=== PATIENT | female | born 1990 | race Caucasian/White ===

== ENCOUNTER → 2017-02-01 | Outpatient (CLI) | payer OTHER ==
--- NOTE | 2017-02-01 15:20 | XR ---
Left shoulder HISTORY: Pain 3 views of the left shoulder Bone mineralization, joint spaces and alignment are maintained. Left lung apex as visualized is kiran l. IMPRESSION: Normal left shoulder.
== END | disposition home or self-care (01) ==
LOC: RADXRMAIN 14:56
PROVIDERS: ATTEND Physician Assistant
DX: M25.512 Pain in left shoulder (principal)

== ENCOUNTER → 2017-04-06 | Outpatient (CLI) | payer OTHER ==
--- NOTE | 2017-04-06 22:23 | CONS ---
CONSULTATION DATE OF SERVICE: 04/06/2017. REASON FOR CONSULTATION: Sleep apnea. PRIMARY CARE PHYSICIAN: Jessica Lujan DO. HISTORY: A very pleasant 26-year-old female patient, works at a [employer] in [place]. The patient is struggling with increased sleepiness and fatigue. She at some times has a hard time keeping herself awake at work. She snores and she quits breathing at night, and this has been told to her by her boyfriend. She has excessive fatigue and sleepiness during the day. She goes to bed between 11 p.m. and 1 a.m. and she wakes up between 5 a.m. and 1 p.m. She averages between 5 to 9 hours of sleep. She has gained around 40 pounds since her high school years. No restlessness in the lower extremities. She wakes up with a dry mouth. No anxiety or palpitations or panic attacks. No other psychiatric history or disorders. No history of any other major medical problems or comorbidities. PAST MEDICAL HISTORY: Acid reflux, arthritis, and obesity. PAST SURGICAL HISTORY: Negative. DRUG ALLERGIES: Not known. OUTPATIENT MEDICATIONS: Naprosyn and omeprazole. SOCIAL HISTORY: Patient smokes half pack of cigarettes a day. No history of alcohol. No history of IV drugs. She drinks Mountain Dew as a caffeinated beverage. FAMILY HISTORY: Negative for sleep apnea in both parents. REVIEW OF SYSTEMS: A 12-point review of system was done, positive findings are mentioned above in the history of present illness. PHYSICAL EXAMINATION: BP is 151/83, pulse 80, respirations 16, temperature 97.3, saturation 99% on room air. Weight is 243, height is 5 feet 5 inches with BMI 39.8. Neck size is 16 inches. GENERAL: Appears calm and comfortable. HEAD: Atraumatic, normocephalic. NECK: Supple. There is no JVD, goiter or neck masses. Mallampati class 4. LUNGS: Clear to auscultation. HEART: Sounds are regular. Normal S1, S2. ABDOMEN: Soft, nontender. No organomegaly. EXTREMITIES: No edema. No cyanosis or clubbing. NEUROLOGIC: The patient is alert and oriented x3. There are no focal neurological deficits. PSYCHIATRIC: No anxiety or depression. SKIN: Negative for ulceration or wounds. IMPRESSION: 1. Obstructive sleep apnea, clinically suspected, under investigation. 2. Chronic hypersomnia and fatigue, [place] score of 14. 3. Obesity with a body mass index of 39.8. 4. Smoker. 5. Acid reflux. PLAN: 1. Encourage weight loss. 2. Proceed with a screening polysomnogram. 3. We will continue to follow and make further recommendations based on the results of the sleep study. MMODL / IJN: [id number] /
== END | disposition home or self-care (01) ==
LOC: SLEEP 16:03
PROVIDERS: ATTEND Internal Medicine Critical Care Medicine
DX: G47.33 Obstructive sleep apnea (adult) (pediatric) (principal); G47.10 Hypersomnia, unspecified; R53.83 Other fatigue; E66.9 Obesity, unspecified; F17.200 Nicotine dependence, unspecified, uncomplicated; K21.9 Gastro-esophageal reflux disease without esophagitis; Z68.39 Body mass index [BMI] 39.0-39.9, adult; Z79.1 Long term (current) use of non-steroidal anti-inflammatories (NSAID); Z79.899 Other long term (current) drug therapy
CPT/HCPCS: 99211

== ENCOUNTER → 2017-04-28 | Outpatient (CLI) | payer OTHER ==
--- NOTE | 2017-04-28 23:06 | MR ---
EXAMINATION TYPE: MR shoulder LT wo con DATE OF EXAM: 04/28/2017 COMPARISON: NONE HISTORY: Shoulder pain TECHNIQUE: Multiplanar, multisequence imaging of the left shoulder is performed without contrast. FINDINGS: The glenoid francis appear intact. Subscapularis tendon is intact. The supraspinatus tendon is intact. I see no subacromial impingement. AC joint appears normal. The biceps tendon appears intact. I see no bony destructive process. There is no evidence of a fracture. IMPRESSION: Negative MR scan of the left shoulder. No evidence of rotator cuff tear.
== END | disposition home or self-care (01) ==
LOC: RADMRIMAIN 21:37
PROVIDERS: ATTEND Family Medicine
DX: M25.511 Pain in right shoulder (principal)

== ENCOUNTER 2019-01-30 13:33 | Emergency (ER) | payer OTHER ==
[2019-01-30] MEDS ORDERED: FAMOTIDINE 20 MG/2 ML VIAL IV STA (14:07)
[2019-01-30] MEDS ORDERED: ONDANSETRON 4 MG/2 ML VIAL IVP STA (14:07)
[2019-01-30] MEDS ORDERED: SODIUM CHLORIDE 0.9% 2,000 ML IV STA (14:07)
[2019-01-30] MEDS ORDERED: DICYCLOMINE 10 MG/ML 2 ML AMP IM STA (14:07)
--- NOTE | 2019-01-30 14:09 | ED ---
General Adult HPI - General Chief complaint: Abdominal Pain Stated complaint: NVD Time Seen by Provider: 01/30/19 13:44 Source: patient, RN notes reviewed Mode of arrival: ambulatory Limitations: no limitations - History of Present Illness Initial comments: Patient is a pleasant 28-year-old female presenting to the emergency department with nausea vomiting diarrhea. Symptoms started 3 or 4 days ago. Patient did have headaches however those have mostly resolved. Patient has had fevers and nausea vomiting diarrhea over the past few days. Patient has vomited a proximally 6 times. Patient is having diarrhea multiple times per day, sometimes up to every hour. Patient has occasional abdominal cramping that can be severe at times. No dysuria or hematuria. Abdominal discomfort is minimal at this point. Patient had fairly significant cramping the last 2 days. - Related Data Home Medications Medication Instructions Recorded Confirmed Omeprazole Magnesium [PriLOSEC OTC] 20 mg PO DAILY PRN 01/30/19 01/30/19 Previous Rx's Medication Instructions Recorded Dicyclomine [Bentyl] 20 mg PO QID #20 tablet 01/30/19 Allergies Allergy/AdvReac Type Severity Reaction Status Date / Time No Known Allergies Allergy Verified 01/30/19 13:52 Review of Systems ROS Statement: Those systems with pertinent positive or pertinent negative responses have been documented in the HPI. ROS Other: All systems not noted in ROS Statement are negative. Constitutional: Reports: as per HPI Eyes: Denies: eye pain ENT: Denies: ear pain Respiratory: Denies: cough Cardiovascular: Denies: chest pain Endocrine: Denies: fatigue Gastrointestinal: Reports: as per HPI, abdominal pain, nausea, vomiting, diarrhea Genitourinary: Denies: dysuria Musculoskeletal: Denies: back pain Skin: Denies: rash Neurological: Denies: weakness Past Medical History Past Medical History: Hypertension History of Any Multi-Drug Resistant Organisms: None Reported Past Surgical History: No Surgical Hx Reported Past Psychological History: No Psychological Hx Reported Smoking Status: Current every day smoker Past Alcohol Use History: None Reported Past Drug Use History: Marijuana General Exam Limitations: no limitations General appearance: alert, in no apparent distress Head exam: Present: normocephalic Eye exam: Present: normal appearance, PERRL ENT exam: Present: normal oropharynx Neck exam: Present: normal inspection. Absent: meningismus Respiratory exam: Present: normal lung sounds bilaterally Cardiovascular Exam: Present: regular rate, normal rhythm Expanded Peripheral pulses: 2+: Posterior Tibialis (R), Posterior Tibialis (L), Dorsalis Pedis (R), Dorsalis Pedis (L) GI/Abdominal exam: Present: soft. Absent: distended, tenderness, guarding, rebound, rigid, pulsatile mass Extremities exam: Present: normal inspection. Absent: pedal edema, calf tenderness Neurological exam: Present: alert. Absent: motor sensory deficit Psychiatric exam: Present: normal affect, normal mood Skin exam: Present: normal color Course Vital Signs 01/30/19 13:35 Temperature 99.0 F Pulse Rate 100 Respiratory 19 Rate Blood Pressure 141/92 O2 Sat by Pulse 99 Oximetry Medical Decision Making - Medical Decision Making Patient reevaluated and resting comfortably in bed. Patient states she does feel much better. Patient updated on results. - Lab Data Result diagrams: 01/30/19 14:00 01/30/19 14:00 Lab Results 01/30/19 01/30/19 01/30/19 Range/Units 14:00 14:00 14:00 WBC 11.2 H (3.8-10.6) k/uL RBC 5.36 (3.80-5.40) m/uL Hgb 14.1 (11.4-16.0) gm/dL Hct 42.9 (34.0-46.0) % MCV 80.1 (80.0-100.0) fL MCH 26.3 (25.0-35.0) pg MCHC 32.8 (31.0-37.0) g/dL RDW 14.0 (11.5-15.5) % Plt Count 357 (150-450) k/uL Neutrophils % 82 % Lymphocytes % 11 % Monocytes % 4 % Eosinophils % 1 % Basophils % 1 % Neutrophils # 9.2 H (1.3-7.7) k/uL Lymphocytes # 1.2 (1.0-4.8) k/uL Monocytes # 0.5 (0-1.0) k/uL Eosinophils # 0.1 (0-0.7) k/uL Basophils # 0.1 (0-0.2) k/uL Sodium 138 (137-145) mmol/L Potassium 3.7 (3.5-5.1) mmol/L Chloride 104 (98-107) mmol/L Carbon Dioxide 21 L (22-30) mmol/L Anion Gap 13 mmol/L BUN 5 L (7-17) mg/dL Creatinine 0.71 (0.52-1.04) mg/dL Est GFR (CKD-EPI)AfAm >90 (>60 ml/min/1.73 sqM) Est GFR (CKD-EPI)NonAf >90 (>60 ml/min/1.73 sqM) Glucose 122 H (74-99) mg/dL Calcium 9.7 (8.4-10.2) mg/dL Total Bilirubin 0.3 (0.2-1.3) mg/dL AST 19 (14-36) U/L ALT 16 (9-52) U/L Alkaline Phosphatase 82 (38-126) U/L Total Protein 7.9 (6.3-8.2) g/dL Albumin 4.4 (3.5-5.0) g/dL Amylase 46 (30-110) U/L Lipase 27 (23-300) U/L HCG, Quant <2.4 mIU/mL Urine Color Light [place] Urine Appearance Turbid H (Clear) Urine pH 6.0 (5.0-8.0) Ur Specific [place] 1.026 (1.001-1.035) Urine Protein 2+ H (Negative) Urine Glucose (UA) Negative (Negative) Urine Ketones Negative (Negative) Urine Blood Trace H (Negative) Urine Nitrite Negative (Negative) Urine Bilirubin Negative (Negative) Urine Urobilinogen <2.0 (<2.0) mg/dL Ur Leukocyte Esterase Large H (Negative) Urine RBC 3 (0-5) /hpf Urine WBC 5 (0-5) /hpf Ur Squamous Epith Cells 40 H (0-4) /hpf Urine Mucus Rare H (None) /hpf - Radiology Data Radiology results: image reviewed (Abdominal x-ray shows nonobstructive pattern) Disposition Clinical Impression: Diarrhea Disposition: HOME SELF-CARE Condition: Stable Instructions (If sedation given, give patient instructions): Acute Diarrhea (ED), Acute Nausea and Vomiting (ED) Additional Instructions: your prescription has been sent to [facility] in [place]. Please follow-up with primary care physician in the next day or 2 for recheck. Return for increased pain, fevers, not tolerating oral intake, worsening symptoms or other concerns. Prescriptions: Dicyclomine [Bentyl] 20 mg PO QID #20 tablet Is patient prescribed a controlled substance at d/c from ED?: No Referrals: Jaylen Medina MD [STAFF PHYSICIAN] - 1-2 days Time of Disposition: 15:34
--- NOTE | 2019-01-30 14:28 | XR ---
EXAMINATION TYPE: XR abdomen 1V DATE OF EXAM: 01/30/2019 COMPARISON: NONE HISTORY: Abdominal discomfort, diarrhea, vomiting TECHNIQUE: Single upright view of the abdomen was performed FINDINGS: There is a mild dextroscoliosis in the long segment of the thoracolumbar spine. No dilated large or small bowel. Diffuse paucity of bowel gas. Lung bases are well aerated. Slight elevation of the right hemidiaphragm may be physiologic. Osseous structures appear intact. IMPRESSION: Nonobstructive bowel gas pattern. Diffuse paucity of bowel gas throughout the abdomen.
[2019-01-30 14:31] LABS: Basophils # (A) 0.1 k/uL (0-0.2); Basophils % (A) 1 %; Eosinophils # (A) 0.1 k/uL (0-0.7); Eosinophils % (A) 1 %; HCT 42.9 % (34.0-46.0); HGB 14.1 gm/dL (11.4-16.0); Lymphocytes # (A) 1.2 k/uL (1.0-4.8); Lymphocytes % (A) 11 %; MCH 26.3 pg (25.0-35.0); MCHC 32.8 g/dL (31.0-37.0); MCV 80.1 fL (80.0-100.0); Mean Platelet Volume 6.3; Monocytes # (A) 0.5 k/uL (0-1.0); Monocytes % (A) 4 %; Neutrophils # (A) 9.2 k/uL (1.3-7.7); Neutrophils % (A) 82 %; Platelet Count 357 k/uL (150-450); RBC 5.36 m/uL (3.80-5.40); WBC 11.2 k/uL (3.8-10.6)
[2019-01-30 14:38] LABS: Appearance,Urine Turbid (Clear); Bilirubin,Urine Negative (Negative); Blood,Urine Trace (Negative); Color,Urine Light Orange; Glucose,Urine (UA) Negative (Negative); Ketones,Urine Negative (Negative); Leukocyte Esterase,Urine Large (Negative); Mucus,Urine Rare /hpf; Nitrite,Urine Negative (Negative); Protein,Urine 2+ (Negative); RBC,Urine 3 /hpf (0-5); Specific Gravity,Urine 1.026 (1.001-1.035); Squamous Epithelial Cell,Urine 40 /hpf (0-4); Urobilinogen,Urine <2.0 mg/dL (<2.0); WBC,Urine 5 /hpf (0-5)
[2019-01-30 14:39] LABS: ALT 16 U/L (9-52); AST 19 U/L (14-36); African American GFR (CKD) >90 (>60 ml/min/1.73 sqM); Albumin 4.4 g/dL (3.5-5.0); Alkaline Phosphatase 82 U/L (38-126); Amylase 46 U/L (30-110); Anion Gap 13 mmol/L; Blood Urea Nitrogen 5 mg/dL (7-17); Calcium 9.7 mg/dL (8.4-10.2); Carbon Dioxide 21 mmol/L (22-30); Chloride 104 mmol/L (98-107); Glucose 122 mg/dL (74-99); Potassium 3.7 mmol/L (3.5-5.1); Sodium 138 mmol/L (137-145); Total Bilirubin 0.3 mg/dL (0.2-1.3); Total Protein 7.9 g/dL (6.3-8.2)
[2019-01-30 14:56] LABS: HCG,Quantitative Serum <2.4 mIU/mL
[2019-01-30 15:50] VITALS: BP 130/78; PULSE 74; RESP 18; TEMP 98
== END 2019-01-30 15:50 | disposition home or self-care (01) ==
LOC: EC 13:33
DX: R19.7 Diarrhea, unspecified (principal); R11.2 Nausea with vomiting, unspecified; R10.9 Unspecified abdominal pain; R50.9 Fever, unspecified; I10 Essential (primary) hypertension; F17.200 Nicotine dependence, unspecified, uncomplicated; Z79.899 Other long term (current) drug therapy
CPT/HCPCS: 36415; 80053; 82150; 83690; 85025; 81001; 84702; 74018; 99284; 96374; 96375; 96372; 96361; J0500; J2405

== ENCOUNTER → 2023-03-12 | Outpatient (CLI) | payer OTHER ==
--- NOTE | 2023-03-12 16:43 | US ---
EXAMINATION TYPE: US venous doppler duplex LE DATE OF EXAM: 03/12/2023 4:29 PM COMPARISON: NONE CLINICAL INDICATION: Female, 32 years old with history of 183.893 VARICOSE VEINS OF BI LOW EXTREM W O TH COMP; Leg pain and swelling for a few weeks. Varicose veins. No other symptoms present. SIDE PERFORMED: Bilateral TECHNIQUE: The lower extremity deep venous system is examined utilizing real time linear array sonog arturo with graded compression, doppler sonography and color-flow sonography. VESSELS IMAGED: Common Femoral Vein Deep Femoral Vein Greater Saphenous Vein * Femoral Vein Popliteal Vein Small Saphenous Vein * Proximal Calf Veins (* superficial vessels) Suboptimal images due to patient body habitus Right Leg: Negative for DVT Left Leg: Negative for DVT IMPRESSION: Grayscale, color doppler, spectral doppler imaging performed of the deep veins of the lo wer extremities. There is normal flow, compressibility, vascular waveforms.
== END | disposition home or self-care (01) ==
LOC: RADUSWWP 15:51
PROVIDERS: ATTEND Family Medicine
DX: I83.893 Varicose veins of bilateral lower extremities with other complications (principal)
CPT/HCPCS: 93970

== ENCOUNTER 2023-05-25 17:00 | Inpatient (IN) | payer OTHER ==
--- NOTE | 2023-05-25 18:10 | P.HPOB ---
History of Present Illness H&P Date: 05/25/23 Chief Complaint: Medical induction of labor Ms. Barth is a 33 year old at 38 weeks and 5 days with EDC of 06/08/2023 by 19 week who presents to labor and delivery for medical induction of labor for chronic hypertension on procardia and gestational diabetes, diet-controlled. Blood pressures have been well controlled on once-daily Procardia and blood sugars have been reasonably well-managed with dietary changes. he fetus measured 54%ile at 34 weeks. work-up: blood type B positive, antibody negative, rubella immune, HBsAg negative, HIV negative, HCV Ab negative, gonorrhea negative, chlamydia negative, 3 hour GTT elevated, GBS negative. s/p TDap 03/09/2023. Past Medical History Past Medical History: Hypertension History of Any Multi-Drug Resistant Organisms: None Reported Past Surgical History: No Surgical Hx Reported Past Psychological History: No Psychological Hx Reported Past Alcohol Use History: None Reported Past Drug Use History: Marijuana Medications and Allergies Home Medications Medication Instructions Recorded Confirmed Type Dicyclomine [Bentyl] 20 mg PO QID #20 tablet 01/30/19 Rx Omeprazole Magnesium [PriLOSEC OTC] 20 mg PO DAILY PRN 01/30/19 01/30/19 History Allergies Allergy/AdvReac Type Severity Reaction Status Date / Time No Known Allergies Allergy Verified 01/30/19 13:52 Exam Focused physical exam is performed. This is a healthy-appearing in no apparent distress. Breathing is non-labored. Abdomen is gravid and non-tender. Cervical exam is closed/long/high. Cooks catheter is placed with 60cc in each balloon. heart tones are reactive on NST. Assessment and Plan Assessment: 33 year old at 38 weeks and 5 days being medically induced for chronic hypertension on antihypertensives and diet-controlled gestational diabetes Plan: Admit, NPO, low dose pitocin with cooks catheter overnight, continuous EFM and tocometer, close monitoring of patient. Time with Patient: Less than 30
[2023-05-25] MEDS: LACTATED RINGERS 1,000 ML IV SCH (18:16)
[2023-05-25 18:25] LABS: Basophils % (A) 0 %; Eosinophils # (A) 0.1 k/uL (0-0.7); Eosinophils % (A) 1 %; HCT 41.8 % (34.0-46.0); HGB 13.7 gm/dL (11.4-16.0); Lymphocytes # (A) 1.4 k/uL (1.0-4.8); Lymphocytes % (A) 11 %; MCH 29.8 pg (25.0-35.0); MCHC 32.8 g/dL (31.0-37.0); MCV 90.7 fL (80.0-100.0); Mean Platelet Volume 8.2; Monocytes # (A) 0.4 k/uL (0-1.0); Monocytes % (A) 3 %; Neutrophils # (A) 10.3 k/uL (1.3-7.7); Neutrophils % (A) 84 %; Platelet Count 283 k/uL (150-450); RBC 4.61 m/uL (3.80-5.40); WBC 12.3 k/uL (3.8-10.6)
[2023-05-25] MEDS: OXYTOCIN 30 UNITS/500 ML NS 30 UNIT in SALINE 1 500ML.BAG IV SCH (18:32)
[2023-05-25 20:01] LABS: Amphetamine Screen,Urine Not Detected (NotDetected); Barbiturate Screen,Urine Not Detected (NotDetected); Benzodiazepines Screen,Urine Not Detected (NotDetected); Cocaine Screen,Urine Not Detected (NotDetected); Methadone Screen, Urine Not Detected (NotDetected); Opiate Screen,Urine Not Detected (NotDetected); Phencyclidine Screen,Urine Not Detected (NotDetected); Tricyclic Antidepressant,Urine Not Detected (NotDetected); Urn Cannabinoid Scrn Not Detected (NotDetected)
[2023-05-25 20:02] LABS: Oxycodone Screen, Urine Not Detected (NotDetected)
[2023-05-26 06:35] LABS: Glucose,Whole Blood 82 mg/dL (70-110)
[2023-05-26] MEDS: NALBUPHINE 10 MG/ML (10 ML MDV) IV PRN (08:37)
[2023-05-26] MEDS: NIFEdipine XL 30 MG TAB.ER.24 PO SCH (09:10)
[2023-05-26] MEDS ORDERED: fentaNYL (PF) 50 MCG/ML 5 ML AMP ONE (10:42)
[2023-05-26] MEDS ORDERED: ROPIVACAINE 5 MG/ML 30 ML VIAL ONE (10:42)
[2023-05-26] MEDS ORDERED: SODIUM CHLORIDE 0.9% 250 ML BAG ONE (10:42)
[2023-05-26] MEDS: CITRIC ACID-SODIUM CITRATE 15 ML CUP PO ONE (19:09)
[2023-05-26] MEDS: ceFAZolin 3 GM in SODIUM CHLORIDE 0.9% 100 ML IVPB ONE (19:12)
[2023-05-26] MEDS ORDERED: OXYTOCIN 30 UNITS/500 ML NS BAG IV ONE (19:21)
[2023-05-26] MEDS ORDERED: PROPOFOL 10 MG/ML 20 ML VIAL IV ONE (19:21)
[2023-05-26] MEDS ORDERED: fentaNYL (PF) 50 MCG/ML 2 ML AMP ONE (19:21)
[2023-05-26] MEDS ORDERED: SUCCINYLCHOLINE CHLORIDE 200 MG/10 ML VIAL IV ONE (19:21)
[2023-05-26] MEDS ORDERED: CARBOPROST TROMETHAMINE 250 MCG/ML 1 ML AMP IM ONE (19:21)
[2023-05-26] MEDS ORDERED: ONDANSETRON 4 MG/2 ML VIAL ONE (19:21)
[2023-05-26] MEDS ORDERED: KETOROLAC 15 MG/ML 1 ML VIAL ONE (19:21)
[2023-05-26] MEDS ORDERED: MORPHINE SULFATE (PF) 0.3 MG/0.3 ML SYR ONE (19:21)
[2023-05-26] MEDS: AZITHROMYCIN 500 MG in SODIUM CHLORIDE 0.9% 250 ML IVPB STA (20:00)
--- NOTE | 2023-05-26 20:51 | P.OP ---
Date of Procedure: 05/26/23 Preoperative Diagnosis: 1. Term IUP at 38 weeks and 1 days 2. Chronic Hypertension 3. Diet-controlled Gestational Diabetes 4. caput Postoperative Diagnosis: 1. Term IUP at 38 weeks and 1 days 2. Chronic Hypertension 3. Diet-controlled Gestational Diabetes 4. caput 5. Uterine atony 6. hemorrhage Procedure(s) Performed: Primary Lower Transverse Section Implants: None Anesthesia: YANNICK Surgeon: Ericka Valencia Tooling Inspector #1: Rose Whitmore Estimated Blood Loss (ml): 1,543 IV fluids (ml): 1,100 Urine output (ml): 250 Pathology: none sent Condition: stable Disposition: floor Indications for Procedure: Ms. Barth is a 33 year old at 38 weeks and 1 day who was being medically induced for chronic hypertension and diet-controlled gestational diabetes. The patient had arrest of active phase of labor at 7.5 centimeters for over 4 hours despite adequate contractions. caput was also noted on cervical exam. section was recommended for maternal and well-being. The risks, benefits, and alternatives to section were discussed with the patient including risk of bleeding, infection, damage to surrounding structures such as bladder/bowel/ureters, and post-operative VTE. The patient understands these risks and desires to proceed with surgery as discussed. Operative Findings: Colorless amniotic fluid, left occiput transverse presentation. Viable male with apgars of 7/9 and weight of 7 pounds 1 ounce (3200 grams). Normal uterus, bilateral fallopian tubes, and ovaries. Description of Procedure: The patient was taken to the operating room where spinal anesthesia was found to be inadequate and the patient was placed under general anesthesia. Three grams of Ancef and 500 miligrams of Azithromycin were given for infection prophylaxis. Vaginal prep was performed prior to the surgery. She was prepared and draped in the dorsal supine position with a leftward tilt. A Pfannenstiel skin incision was made with the scalpel. The incision was carried down to the fascia. The fascia was incised and extended laterally with Aguila scissors. The superior aspect of the fascia was grasped with Lucero clamps. The underlying rectus muscle was dissected off sharply with Aguila scissors. In a similar fashion, the inferior aspect of the fascia was elevated with Lucero clamps and the rectus muscle and pyramidalis were dissected off. Excellent hemostasis was achieved with the bovie. The rectus muscle was in the midline down to the level of the pubic symphysis. Pre-peritoneal fatty tissue was bluntly dissected to expose the peritoneum. The peritoneum was found to be free of adherent bowel and entered sharply with Aguila scissors. The peritoneal incision was extended superiorly and inferiorly to the bladder reflection with good visualization of the bladder. The bladder blade was inserted and vesicouterine peritoneum was identified. Intraabdominal survey revealed scant, clear peritoneal fluid and the thinned-out lower uterine segment. The bladder blade was repositioned to keep the bladder out of the operative field. The lower uterine segment was incised with a scalpel. The amniotic sac was ruptured with an Allis clamp and clear fluid was noted. The uterine incision was extended bluntly with lateral and upward traction. The fetus was in left occiput transverse position. The head was elevated out of the pelvis with special attention paid to avoid using the uterine incision as a fulcrum. Gentle fundal pressure was applied once the head was brought into the incision. The infant was delivered with no difficulty. The mouth and nose were suctioned with a bulb. The cord was clamped and cut. was noted to be spontaneously crying. The infant was handed off to the lay out helper. IV oxytocin was initiated to facilitate uterine contractions. The placenta was delivered intact with manual massage of uterine fundus. The uterus was then exteriorized and the inside of the uterus was gently wiped with a lap sponge to assure complete removal of placental membranes. The uterus was found to be boggy so 10 units of Oxytocin were given IM. The uterus continued to feel atonic, therefore two doses of hemabate were also administered. The uterine incision was closed with a 0-Polysorb suture in a running locked fashion. A second imbricating layer of 0-Polysorb was placed along the incision. Additional figure of eight sutures were placed along the incision to facilitate hemostasis. The ovaries and tubes were found to be normal. The uterus, tubes, and ovaries were then gently returned to the abdominal cavity. The blood clots and fluid were wiped out of the abdomen and pelvis with moist laparotomy sponges. The pelvis was copiously suction irrigated.The uterine incision was reinspected and excellent hemostasis was noted. Good uterine tone was noted. The fascial layer was closed with a 0-Vicryl suture. The subcutaneous tissue was reapproximated with 2-0 Plain Gut. The skin was closed with landon. The patient tolerated the procedure well. All the counts were correct times two. The patient was taken to the recovery room in a stable condition.
[2023-05-26] MEDS ORDERED: METOCLOPRAMIDE 5 MG/ML 2 ML VIAL IVP PRN (20:52)
[2023-05-26] MEDS ORDERED: ZOLPIDEM 5 MG TAB PO PRN (20:52)
[2023-05-26] MEDS ORDERED: ONDANSETRON 4 MG/2 ML VIAL IVP PRN (20:52)
[2023-05-26] MEDS ORDERED: diphenhydrAMINE 25 MG CAP PO PRN (20:52)
[2023-05-26] MEDS ORDERED: NALOXONE 0.4 MG/ML 1 ML VIAL IV PRN (20:52)
[2023-05-26] MEDS ORDERED: SIMETHICONE 80 MG CHEWABLE PO PRN (20:52)
[2023-05-26] MEDS ORDERED: diphenhydrAMINE 50 MG/ML 1 ML VIAL IVP PRN ×2 (20:52)
[2023-05-26] MEDS ORDERED: diphenhydrAMINE 50 MG CAP PO PRN (20:52)
[2023-05-26] MEDS: KETOROLAC 15 MG/ML 1 ML VIAL IVP SCH (21:42)
[2023-05-26] MEDS: LACTATED RINGERS 1,000 ML IV SCH (21:43)
[2023-05-26] MEDS: MORPHINE PCA 50 MG/50 ML BAG IV PRN (21:59)
[2023-05-27] MEDS: ACETAMINOPHEN TAB 500 MG TAB PO SCH (00:41)
[2023-05-27 02:34] LABS: Basophils % (A) 0 %; Eosinophils % (A) 0 %; HCT 31.1 % (34.0-46.0); Lymphocytes # (A) 0.9 k/uL (1.0-4.8); Lymphocytes % (A) 5 %; MCH 30.5 pg (25.0-35.0); MCV 92.4 fL (80.0-100.0); Mean Platelet Volume 8.4; Monocytes # (A) 0.8 k/uL (0-1.0); Monocytes % (A) 4 %; Neutrophils # (A) 18.4 k/uL (1.3-7.7); Neutrophils % (A) 91 %; Platelet Count 220 k/uL (150-450); RBC 3.37 m/uL (3.80-5.40); RDW 14.1 % (11.5-15.5); WBC 20.3 k/uL (3.8-10.6)
[2023-05-27 02:49] LABS: HGB 10.3 gm/dL (11.4-16.0)
[2023-05-27 05:57] LABS: Basophils # (A) 0.1 k/uL (0-0.2); Basophils % (A) 0 %; Eosinophils # (A) 0.2 k/uL (0-0.7); Eosinophils % (A) 1 %; HCT 31.9 % (34.0-46.0); HGB 10.7 gm/dL (11.4-16.0); Lymphocytes # (A) 1.5 k/uL (1.0-4.8); Lymphocytes % (A) 7 %; MCH 31.1 pg (25.0-35.0); MCHC 33.6 g/dL (31.0-37.0); MCV 92.5 fL (80.0-100.0); Mean Platelet Volume 8.4; Monocytes # (A) 0.9 k/uL (0-1.0); Monocytes % (A) 5 %; Neutrophils % (A) 86 %; Platelet Count 227 k/uL (150-450); RBC 3.44 m/uL (3.80-5.40); RDW 13.9 % (11.5-15.5); WBC 19.8 k/uL (3.8-10.6)
--- NOTE | 2023-05-27 08:13 | P.PN ---
Progress Note - Text Progress Note Date: 05/27/23 Ms. Barth is a 33 -year-old female had a history of under spinal anal gesia with Astramorph 300 g for postop pain. Later converted to general anesthesia due to inadequate spinal analgesia. Today patient is comfortable lying in her bed. Today patient rated her pain level 3 out of 10 in severity. Denied any fever, drowsiness, confusion. Denied any weakness, tingling sensation in her lower extremities. Denied any bowel or bladder problems. Moving all extremities without any difficulty. Able to walk without any difficulties. Vitals: Hemodynamically stable Continue oral pain medication as per primary team.
--- NOTE | 2023-05-27 08:33 | P.PNOBGPC ---
Subjective - Subjective Principal diagnosis: s/p primary section Interval history: The patient is doing well this morning and had no acute events overnight. She has no complaints this morning. She reports minimal lochia, passing flatus, voiding without difficulty, ambulating, and eating/drinking without nausea or vomiting. She is her without difficulty. She denies chest pain, shortness of breathing, fevers, or chills overnight. She denies pain or swelling in the legs. Patient reports: Reports appetite normal, Reports voiding normally, Reports pain well controlled, Reports ambulating normally [place]: doing well, nursing well Objective - Vital Signs Latest vital signs: Vital Signs Temp Pulse Resp BP BP Pulse Ox 05/27/23 03:18 98.4 F 78 15 112/63 98 05/27/23 00:32 96.7 F L 86 16 133/68 96 05/26/23 22:32 80 16 128/74 98 05/26/23 22:17 91 16 126/69 98 05/26/23 22:02 76 16 132/76 97 05/26/23 21:47 77 16 127/70 97 05/26/23 21:32 77 16 132/78 98 05/26/23 21:17 96.8 F L 79 16 128/63 99 05/26/23 21:02 85 16 141/63 97 05/26/23 20:47 86 16 143/67 98 05/26/23 20:32 96.8 F L 92 16 128/94 94 L Intake and Output 05/26/23 05/27/23 05/27/23 22:59 06:59 14:59 Intake Total 1200 Output Total 2302 909 Balance -1102 -909 Intake: IV 1200 Output: Urine 550 700 Uretheral ([place]) 200 Output, Quantitative 1752 209 Blood Loss - Exam Extremities: Present: normal Abdomen: Present: normal appearance, soft Incision: Present: normal, dry, dressed Uterus: Present: normal, firm - Labs Labs: Abnormal Lab Results - Last 24 Hours (Table) 05/27/23 05/27/23 Range/Units 02:06 05:37 WBC 20.3 H 19.8 H (3.8-10.6) k/uL RBC 3.37 L 3.44 L (3.80-5.40) m/uL Hgb 10.3 L D 10.7 L (11.4-16.0) gm/dL Hct 31.1 L 31.9 L (34.0-46.0) % Neutrophils # 18.4 H 17.0 H (1.3-7.7) k/uL Lymphocytes # 0.9 L (1.0-4.8) k/uL Assessment and Plan Assessment: 33 year old now POD#1 s/p primary section 2/2 arrest of active labor Plan: 1. Post-op. Patient meeting all postoperative milestones appropriately. Continue to monitor. 2. Acute blood loss anemia. Patient denies lightheadedness, VSS. 3. cHTN. BPs normotensive. Some elevated pressures in labor. 4. GDM. Needs 2hr GTT at 6 weeks . 5. Viable male . Consented for circumcision. Dispo: Anticipate discharge home tomorrow.
[2023-05-27] MEDS: SENNOSIDES-DOCUSATE SODIUM 1 EACH TAB PO SCH (09:22)
[2023-05-27] MEDS: FERROUS SULFATE 325 MG TAB PO SCH (12:46)
[2023-05-27] MEDS ORDERED: IBUPROFEN 400 MG TAB PO PRN (21:23)
[2023-05-27] MEDS: IBUPROFEN 600 MG TAB PO PRN (21:49)
--- NOTE | 2023-05-28 10:12 | P.PNOBGPC ---
Subjective - Subjective Principal diagnosis: s/p primary Interval history: The patient is doing well this morning and had no acute events overnight. She has no complaints this morning. She reports minimal lochia, passing flatus, voiding without difficulty, ambulating, and eating/drinking without nausea or vomiting. She is her infant without difficulty. She denies chest pain, shortness of breathing, fevers, or chills overnight. She denies pain or swelling in the legs. Patient reports: Reports appetite normal, Reports voiding normally, Reports pain well controlled, Reports ambulating normally : doing well Objective - Vital Signs Latest vital signs: Vital Signs Temp Pulse Resp BP Pulse Ox 05/28/23 08:16 98.2 F 81 20 114/70 05/27/23 20:00 98.6 F 82 16 105/68 05/27/23 15:24 98.0 F 65 18 130/77 05/27/23 11:55 98.3 F 85 18 108/72 98 Intake and Output 05/27/23 05/28/23 05/28/23 22:59 06:59 14:59 Output Total 300 Balance -300 Output: Urine 300 Other: # Voids 1 2 1 - Exam Extremities: Present: normal Abdomen: Present: normal appearance, soft Incision: Present: normal, dry, intact Uterus: Present: normal, firm Assessment and Plan Assessment: 33 year old now POD#2 s/p primary section 2/2 arrest of active labor Plan: 1. Post-op. Patient meeting all postoperative milestones appropriately. Continue to monitor. 2. Acute blood loss anemia. Patient denies lightheadedness, VSS. 3. cHTN. BPs normotensive. Some elevated pressures in labor. 4. GDM. Needs 2hr GTT at 6 weeks . 5. Viable male . Consented for circumcision. Dispo: Patient would like to stay an additional night. Anticipate discharge home tomorrow.
--- NOTE | 2023-05-29 07:31 | P.DS ---
Providers Date of admission: 05/25/23 17:20 Expected date of discharge: 05/29/23 Attending physician: Ericka Valencia MD Primary care physician: Stated None Hospital Course: Ms. Barth is a 33 year old now POD#3 s/p primary section secondary to arrest of active labor after induction of labor for chronic hypertension and diet-controlled gestational diabetes. Her section was complicated by hemorrhage secondary to uterine atony. Her post- operative course has been uncomplicated. The patient is doing well this morning and had no acute events overnight. She has no complaints this morning. She repor ts minimal lochia, passing flatus, voiding without difficulty, ambulating, and eating/drinking without nausea or vomiting. doing well at bedside, formula-feeding without difficulty, s/p circumcision. She denies chest pain, shortness of breathing, fevers, or chills overnight. She denies pain or swelling in the legs. She denies lightheadedness with ambulation. She denies headaches, visual disturbances, or right upper quadrant pain. Postoperative restrictions are reviewed with the patient including pelvic rest for 6 weeks, no lifting heavier than 15 pounds for 6 weeks. The patient is encouraged to call the office if she experiences any heavy bleeding, foul-smelling discharge, breast complaints, or any if she has any other concerns. She will follow up in the office early next week for blood pressure check and staple removal. She will go home with Motrin, Tylenol, and a less than 3 day supply of Oxycodone for breakthrough pain. All questions are answered Assessment: 33 year old now POD#3 s/p primary section secondary to arrest of active labor after induction of labor for chronic hypertension and diet- controlled gestational diabetes Patient Condition at Discharge: Good Plan - Discharge Summary Discharge Rx Participant: No New Discharge Prescriptions: New Ibuprofen [Motrin] 600 mg PO Q6HR PRN #30 tab PRN Reason: Mild Pain (Scale 1 To 3) oxyCODONE HCL [Roxicodone] 5 mg PO Q6HR PRN 3 Days #12 tab PRN Reason: Breakthrough Pain Acetaminophen Tab [Tylenol] 650 mg PO Q6H PRN #30 tab PRN Reason: Mild Pain (Scale 1 To 3) No Action Omeprazole Magnesium [PriLOSEC OTC] 20 mg PO DAILY PRN PRN Reason: GERD Ferrous Sulfate [Iron (65 MG Elemental)] 1 tab PO DAILY Aspirin 81 mg PO DAILY Vit No.179/Iron/Folic [ Tablet] 1 each PO DAILY Discharge Medication List Omeprazole Magnesium [PriLOSEC OTC] 20 mg PO DAILY PRN 01/30/19 [History] Aspirin 81 mg PO DAILY 05/25/23 [History] Ferrous Sulfate [Iron (65 MG Elemental)] 1 tab PO DAILY 05/25/23 [History] Vit No.179/Iron/Folic [ Tablet] 1 each PO DAILY 05/25/23 [History] Acetaminophen Tab [Tylenol] 650 mg PO Q6H PRN #30 tab 05/29/23 [Rx] Ibuprofen [Motrin] 600 mg PO Q6HR PRN #30 tab 05/29/23 [Rx] oxyCODONE HCL [Roxicodone] 5 mg PO Q6HR PRN 3 Days #12 tab 05/29/23 [Rx] Follow up Appointment(s)/Referral(s): Ericka Valencia MD [STAFF PHYSICIAN] - 1-2 Days Activity/Diet/Wound Care/Special Instructions: Instructions 1. Do not begin any exercise program for 3 weeks. 2. Do not resume sexual relations for 6 weeks or longer if uncomfortable. 3. You may take tub baths or showers at any time. 4. You may use tampons if desired after 6 weeks. 5. Keep any areas repaired with stitches clean and dry. 6. If you are not nursing, wear a good fitting, supportive bra during the day and limit fluid intake for at least 1 week to prevent breast engorgement. 7. Call the office, , within the next week to make appointment for your 6 week checkup if it has not already been made. 8. Report any of the following occurrences to the doctor promptly: a. Heavy, excessive bleeding b. Chills, fever c. Burning or frequency of urination d. Pain or redness and breasts if nursing e. Increasing pain or swelling of vulva (stitches). In addition to the above instructions, the following additional should be followed: 1. No heavy lifting or straining (exercising) until after 6 week checkup. 2. Keep abdominal incision clean and dry: You may wear a dressing if more comfortable. 3. Make office appointment for 2 weeks after delivery date. Discharge Disposition: HOME SELF-CARE
[2023-05-29 08:52] VITALS: BP 122/77; PULSE 68; RESP 18; TEMP 97.4
== END 2023-05-29 12:01 | disposition home or self-care (01) | DRG 787 ==
LOC: 4FBP 17:20
PROVIDERS: ADMIT Obstetrics & Gynecology; ATTEND Obstetrics & Gynecology
PROC: 0U7C7ZZ Dilation of Cervix, Via Natural or Artificial Opening (ICD-10-PCS; principal; 2023-05-26 06:15)
PROC: 10D00Z1 Extraction of Products of Conception, Low, Open Approach (ICD-10-PCS; principal; 2023-05-26 06:15)
DX: O10.92 Unspecified pre-existing hypertension complicating childbirth (principal); D62 Acute posthemorrhagic anemia; O72.1 Other immediate postpartum hemorrhage; O90.81 Anemia of the puerperium; O24.420 Gestational diabetes mellitus in childbirth, diet controlled; O32.2XX0 Maternal care for transverse and oblique lie, not applicable or unspecified; N85.8 Other specified noninflammatory disorders of uterus; O62.1 Secondary uterine inertia; Z37.0 Single live birth; Z3A.38 38 weeks gestation of pregnancy; Z79.899 Other long term (current) drug therapy; Z28.310 Unvaccinated for COVID-19; Z28.21 Immunization not carried out because of patient refusal
CPT/HCPCS: 80306; 85025; 86850; 86900; 86901